=== PATIENT | female | born 1935 | race Hispanic/Latino ===

== ENCOUNTER 2022-07-25 10:00 | Inpatient (IN) | payer MEDICARE ==
[~2022-07-25] VITALS: Ht 147.3 cm; Wt 66.8 kg
[~2022-07-25 10:00] MED LIST: AEC81 PO; LORA10TA7 PO
[2022-07-25 11:28] LABS: BASOPHILS % (AUTO) 0.5 % (0.0-5.0); EOSINOPHILS % (AUTO) 2.7 % (0.0-8.0); HEMATOCRIT 38.6 % (36-48); LYMPHOCYTES % (AUTO) 20.2 % (21.0-51.0); MEAN CORPUSCULAR HGB CONC 32.9 g/dL (32.0-36.0); MEAN CORPUSCULAR VOLUME 94.1 fL (79-99); MONOCYTES % (AUTO) 5.6 % (3.0-13.0); NEUTROPHILS % (AUTO) 70.3 % (40.0-77.0); PLATELET COUNT (AUTO) 212 K/uL (130-400); RED CELL DISTRIBUTION WIDTH 14.1 % (11.0-15.5); WHITE BLOOD COUNT (AUTO) 7.3 K/uL (4.8-10.8)
[2022-07-25 11:44] LABS: INR 0.95 (0.85-1.15); PROTHROMBIN TIME 10.4 SEC (9.6-11.6)
[2022-07-25 11:45] LABS: PARTIAL THROMBOPLASTIN TIME 31.2 SEC (26.3-35.5)
[2022-07-25 12:01] LABS: CREATININE 1.1 mg/dL (0.5-1.5); POTASSIUM 4.1 mmol/L (3.5-5.1)
[2022-07-25 12:01] LABS: APPEARANCE,URINE CLEAR (CLEAR); BILIRUBIN,URINE NEGATIVE (NEGATIVE); COLOR,URINE LIGHT-YELLOW (YELLOW); GLUCOSE, URINE (UA) NEGATIVE (NEGATIVE); KETONES,URINE NEGATIVE (NEGATIVE); LEUKOCYTE ESTERASE ,URINE NEGATIVE Leu/uL (NEGATIVE); NITRATE,URINE NEGATIVE (NEGATIVE); OCCULT BLOOD,URINE NEGATIVE (NEGATIVE); PROTEIN,URINE NEGATIVE (NEGATIVE); UROBILINOGEN,URINE 0.2 mg/dL (0.2-1.0)
[2022-07-26 10:27] VITALS: BP 117/64
[2022-07-26] MEDS ORDERED: LATA7.5D OP (15:07)
[2022-07-26] MEDS ORDERED: ONDA-104 PO (15:07)
[2022-07-26] MEDS ORDERED: PANT40TA54 PO (15:07)
[2022-07-26] MEDS ORDERED: TELM1TAB31 PO (15:07)
[2022-07-26] MEDS ORDERED: CYCL30DR OP (15:07)
[2022-07-26] MEDS ORDERED: ROSU20TA31 PO (15:07)
[2022-07-27] VITALS (15 sets, daily range): BP systolic 118–158; BP diastolic 46–76
[2022-07-27] MEDS ORDERED: 0.9%NACL 1000ML 1,000 ML IV ONE (07:58)
[2022-07-27] MEDS ORDERED: CEFAZOLIN SODIUM 2 GM VIAL ONE (07:58)
[2022-07-27] MEDS ORDERED: IODIXANOL 320 MG/ML 100 ML VIAL ONE ×2 (10:08→10:30)
[2022-07-27] MEDS ORDERED: HEPARIN 10,000 UNIT/10ML (1,000 UNIT/ML) VIAL ONE (10:09)
[2022-07-27] MEDS ORDERED: PROPOFOL 10 MG/ML 20ML VIAL IV ONE (10:18)
[2022-07-27] MEDS ORDERED: FENTANYL CITRATE PF 50 MCG/1 ML 2ML VIAL ONE ×2 (10:18→11:12)
[2022-07-27] MEDS ORDERED: ROCURONIUM BROMIDE 10MG/1ML 5ML VL ONE ×2 (10:19→11:11)
[2022-07-27] MEDS ORDERED: HEPARIN 1,000 UNIT VIAL ONE (10:21)
[2022-07-27] MEDS ORDERED: LIDOCAINE HCL 400MG/20ML VIAL ONE (10:22)
[2022-07-27] MEDS ORDERED: PHENYLEPHRINE HCL 10 MG/ML 1ML VIAL IV ONE (10:42)
[2022-07-27] MEDS ORDERED: ONDANSETRON 4MG INJ ONE (10:49)
[2022-07-27] MEDS ORDERED: NOREPINEPHRIN 4MG/NS 250ML 250 ML IV PRN (14:30)
[2022-07-27] MEDS ORDERED: ONDANSETRON 4MG INJ IV PRN ×3 (14:30→21:00)
[2022-07-27] MEDS ORDERED: 0.9%NACL 1000ML 1,000 ML IV SCH (14:30)
[2022-07-27] MEDS ORDERED: NITROGLYCERIN 50MG/D5W 250ML 250 BOT IV PRN (14:30)
[2022-07-27] MEDS ORDERED: ACETAMINOPHEN 325 MG TAB PO PRN ×3 (14:30→21:00)
[2022-07-27] MEDS ORDERED: TEMAZEPAM 30 MG CAP PO PRN ×2 (14:30)
[2022-07-27] MEDS ORDERED: NEOSTIGMINE 5MG/5ML SYR IV ONE (14:37)
[2022-07-27] MEDS ORDERED: GLYCOPYRROLATE 0.2 MG/ML 5 ML VIAL ONE (14:38)
[2022-07-27] MEDS ORDERED: SUGAMMADEX SODIUM 200 MG/2 ML VIAL IV ONE (14:46)
[2022-07-27] MEDS: ACETAMINOPHEN 325 MG TAB PO PRN ×2 (16:21→20:12)
[2022-07-27] MEDS: CEFAZOLIN SODIUM 1 GM VIAL IVPB SCH (18:06)
[2022-07-27] MEDS ORDERED: CEFAZOLIN SODIUM 2 GM VIAL IVPB SCH (19:00)
[2022-07-27] MEDS: PANTOPRAZOLE 40 MG TAB DR PO SCH (20:11)
[2022-07-27] MEDS: ONDANSETRON 4MG TABLET PO SCH (20:11)
[2022-07-27] MEDS: **HM**(Cyclosporine (Restasis) 1 EACH OP SCH (20:23)
[2022-07-27] MEDS ORDERED: HYDROMORPHONE 0.5 MG SYG (0.5MG/0.5ML) IVP PRN ×2 (21:00)
[2022-07-27] MEDS ORDERED: LATANOPROST 2.5 ML DROPS OP SCH (21:00)
[2022-07-27] MEDS ORDERED: ASPIRIN 81 MG EC TAB PO SCH (21:00)
[2022-07-28] VITALS (14 sets, daily range): BP systolic 112–130; BP diastolic 45–68
[2022-07-28] MEDS: CEFAZOLIN SODIUM 1 GM VIAL IVPB SCH (02:22)
[2022-07-28 03:47] LABS: BASOPHILS % (AUTO) 0.3 % (0.0-5.0); EOSINOPHILS % (AUTO) 0.4 % (0.0-8.0); HEMATOCRIT 29.2 % (36-48); LYMPHOCYTES % (AUTO) 9.7 % (21.0-51.0); MEAN CORPUSCULAR HEMOGLOBIN 30.3 pg (27.0-33.0); MEAN CORPUSCULAR HGB CONC 31.2 g/dL (32.0-36.0); MEAN CORPUSCULAR VOLUME 97.3 fL (79-99); MONOCYTES % (AUTO) 5.1 % (3.0-13.0); NEUTROPHILS % (AUTO) 84.1 % (40.0-77.0); PLATELET COUNT (AUTO) 139 K/uL (130-400); RED CELL DISTRIBUTION WIDTH 14.3 % (11.0-15.5)
[2022-07-28 03:53] LABS: MAGNESIUM 1.6 mg/dL (1.80-2.40); PHOSPHORUS 4.1 mg/dL (2.5-4.9); POTASSIUM 3.7 mmol/L (3.5-5.1)
[2022-07-28] MEDS ORDERED: MAGNESIUM 2GM PREMIX 50ML 50 ML IV SCH (06:30)
[2022-07-28] MEDS: ONDANSETRON 4MG TABLET PO SCH (09:00)
[2022-07-28] MEDS: **HM**(Cyclosporine (Restasis) 1 EACH OP SCH (09:00)
[2022-07-28] MEDS ORDERED: ATORVASTATIN 40 MG TABLET PO SCH (09:00)
[2022-07-28] MEDS ORDERED: LORATADINE 10 MG TABLET PO SCH (09:00)
[2022-07-28] MEDS ORDERED: LOSARTAN/HYDROCHLOROTHIAZIDE 50-12.5MG TABLET PO SCH (09:00)
[2022-07-28] MEDS: PANTOPRAZOLE 40 MG TAB DR PO SCH (09:00)
[2022-07-28] MEDS ORDERED: FAMOTIDINE 20MG VIAL IV SCH (09:00)
[2022-07-28] MEDS ORDERED: LEVO-70 PO (15:43)
== END 2022-07-28 17:40 | disposition home or self-care (01) | DRG 269 ==
LOC: EDSTATUS 10:00 → DAHIP 07-27 07:22 → 2CH 07-27 15:09
PROVIDERS: ADMIT Internal Medicine; ATTEND Internal Medicine
PROC: 04V03DZ Restriction of Abdominal Aorta with Intraluminal Device, Percutaneous Approach (ICD-10-PCS; principal; 2022-07-27)
PROC: B4101ZZ Fluoroscopy of Abdominal Aorta using Low Osmolar Contrast (ICD-10-PCS; 2022-07-27)
PROC: 04793DZ Dilation of Right Renal Artery with Intraluminal Device, Percutaneous Approach (ICD-10-PCS; 2022-07-27)
PROC: 04WY3DZ Revision of Intraluminal Device in Lower Artery, Percutaneous Approach (ICD-10-PCS; 2022-07-27)
PROC: B4161ZZ Fluoroscopy of Right Renal Artery using Low Osmolar Contrast (ICD-10-PCS; 2022-07-27)
DX: I71.43 Infrarenal abdominal aortic aneurysm, without rupture (principal); E78.5 Hyperlipidemia, unspecified; Z20.822 Contact with and (suspected) exposure to COVID-19; I10 Essential (primary) hypertension; I73.9 Peripheral vascular disease, unspecified; Z79.82 Long term (current) use of aspirin; Z79.899 Other long term (current) drug therapy; Z95.5 Presence of coronary angioplasty implant and graft
CPT/HCPCS: 34710; 34712; 34713; 36251; 36415; 37236; 37242; 71045; 80048; 81003; 82948; 83735; 84100; 85025; 85610; 85730; 86850; 86900; 86901; 86923; 87426; 93005; A4606; C1725; C1760; C1769; C1887; C1894; G0378; J0690; J1644; J2370; J2405; J2704; J2710; J3010; J3475; J3490; J7030; Q0162; Q9967

== ENCOUNTER → 2024-06-26 | Outpatient (CLI) | payer MEDICARE ==
[~2024-06-26] MED LIST changes: +CYCL30DR OP; +IOHEXOL-350 75 ML VIAL IV ONE; +LATA7.5D OP; +LEVO-70 PO; +ONDA-104 PO; +PANT40TA54 PO; +ROSU20TA98 PO; +TELM1TAB31 PO
--- NOTE | 2024-06-26 11:35 | HMCIMG ---
CT ANGIO ABD/PEL PRE AAA 3MM HISTORY: No additional history given. COMPARISON: None TECHNIQUE: CT angiography of the abdomen and pelvis was obtained using angiographic technique with maximum intensity projection reconstruction images. Patient was not given contrast through intravenous route. Oral contrast was not given. FINDINGS: No pleural effusion is seen bilaterally. 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 Tortuosity of aorta is seen. There is no evidence of parenchymal disease or pulmonary nodule of the visualized lower lungs. Degenerative changes of the thoracolumbar spine are present. The heart is not enlarged. There is left hepatic cyst measuring 2.2 cm. The liver, spleen, adrenal glands and pancreas are unremarkable. There is no evidence of hydronephrosis bilaterally. No evidence of renal stone is seen. There is left renal atrophy. Fecal material is seen in the colon. There are normal size retroperitoneal and mesenteric lymph nodes. No ascites is seen. Atherosclerotic changes are present. There is diffuse atherosclerotic disease. There is large abdominal aortic aneurysm measuring 9.5 x 10.2 cm. This measure 8.7 x 7.4 cm which is increased in size during the interval. There are aortobilateral iliac stent graft with aneurysm repair changes. There appears be embolization material noted at the distal aspect of the aortic aneurysm with extensive thrombus formation. There is subtle contrast extravasation noted. This has become slightly increase on the delayed images. Findings are suspicious for slow leak of the graft. Clinical correlation is recommended. The celiac, superior mesenteric and bilateral renal arteries are grossly patent. The visualized portion of the iliac and femoral arterial systems are also grossly patent. Pelvic sidewalls are symmetric bilaterally. Bladder is well distended without wall thickening. IMPRESSION: 1. There is large abdominal aortic aneurysm measuring 9.5 x 10.2 cm. This measure 8.7 x 7.4 cm which is increased in size during the interval. There are aortobilateral iliac stent graft with aneurysm repair changes. There appears be embolization material noted at the distal aspect of the aortic aneurysm with extensive thrombus formation. There is subtle contrast extravasation versus enhancement noted. This has become slightly increase on the delayed images. Findings are suspicious for slow leak of the graft. Clinical correlation is recommended. Report was given to referring physician's office. CT was performed with one or more following dose reduction techniques: automated exposure control, adjustment of the mA and kv according to patient's size, or use of a iterative reconstruction technique.
== END | disposition home or self-care (01) ==
LOC: RAH 09:24
PROVIDERS: ATTEND Internal Medicine Cardiovascular Disease
DX: I71.40 Abdominal aortic aneurysm, without rupture, unspecified (principal); N32.89 Other specified disorders of bladder; I70.0 Atherosclerosis of aorta; K76.89 Other specified diseases of liver; J98.4 Other disorders of lung; J44.9 Chronic obstructive pulmonary disease, unspecified; M47.815 Spondylosis without myelopathy or radiculopathy, thoracolumbar region
CPT/HCPCS: 74174; Q9967

== ENCOUNTER → 2024-09-18 | Outpatient (CLI) | payer MEDICARE ==
[~2024-09-18] MED LIST changes: -CYCL30DR OP; +IOHEXOL 350 MG/ML 100ML INFUS..BTL IV ONE; +IOHEXOL-350 50ML VIAL IV ONE; -IOHEXOL-350 75 ML VIAL IV ONE; -LATA7.5D OP; -LEVO-70 PO; +NITROGLYCERIN 50MG/D5W 250ML 1 BOT ONE; -ONDA-104 PO; -PANT40TA54 PO; +PROBIOTICS PO
--- NOTE | 2024-09-18 15:18 | HMCIMG ---
CT ANGIO ABD AORTA W RUNOFF REASON: Abdominal aortic aneurysm, without rupture, unspecified COMPARISON: 06/26/2024 TECHNIQUE: Images are obtained from lung bases through the feet before and after IV contrast, 150 cc Omnipaque 350. 2-D and 3-D reconstruction images were performed. FINDINGS: There is some blebs in the lung bases unchanged since prior exam. There are no focal infiltrates or masses. Nonvascular imaging shows normal appearance of the liver spleen and right kidney, the left kidney is atrophic. Pancreas appears unremarkable, the gallbladder is absent. Bowel loops appear normal. There is no free air or fluid. Pelvic soft tissues appear normal. Anterior abdominal wall appears intact. Vascular imaging shows an aortic stent graft in place. There is a large aneurysm of the [place] aorta measuring 9.2 x 9.9 cm greatest axial dimension. There are some mural calcifications. There is no evidence of endoleak. 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 Both external iliac arteries are patent as are both common femoral arteries. Runoff demonstrates normal-appearing superficial femoral arteries on both sides. Popliteal arteries appear unremarkable as well. Trifurcation vessels are intact. There is three-vessel runoff to the ankle on both sides. There is posterior tibial runoff to the feet on both sides. Dorsalis pedis arteries are only faintly visualized, this appears due to due to bolus timing artifact rather than vascular occlusion. IMPRESSION: 1. Aortic stent graft in place, there is complete thrombosis of the large and [place] abdominal aortic aneurysm, there is no evidence of endoleak. 2. 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 3. The aortobiiliac stent graft is widely patent to the level of the external iliac arteries, external and iliac and common femoral arteries are widely patent on both sides. 4. Mesenteric and right renal arteries appear patent, left renal artery is not well visualized, left kidney is markedly atrophic. 5. Normal-appearing three-vessel runoff to the ankles in both lower extremities with no visible atherosclerotic change, there are posterior tibial artery patent in both feet, dorsalis pedis arteries are not well visualized but probably due to bolus timing artifact as discussed above.
== END | disposition home or self-care (01) ==
LOC: EDSTATUS 08-29 10:00 → RAH 09:31
PROVIDERS: ATTEND Internal Medicine Cardiovascular Disease
DX: I74.5 Embolism and thrombosis of iliac artery (principal); I71.40 Abdominal aortic aneurysm, without rupture, unspecified; I72.3 Aneurysm of iliac artery; I71.9 Aortic aneurysm of unspecified site, without rupture; N26.1 Atrophy of kidney (terminal)
CPT/HCPCS: 75635; Q9967 ×2; J3490